=== PATIENT | male | born 1955 | race Caucasian/White ===

== ENCOUNTER → 2016-08-24 | Outpatient (CLI) | payer OTHER ==
[~2016-08-24] MED LIST: ARICEPT 5 MG5 MG PO; ARICEPT10 M1 PO; ASPIRIN (CHILDR81 MG PO; DITROPAN XL5 MG PO; LOPERAMIDE2 MG PO; MILK OF MA400 MG/5 M PO; NEURONTIN300 MG PO; NORCO 5-325 MG1 TAB PO; PRILOSEC20 MG PO; TYLENOL EXTRA500 MG PO
== END | disposition disaster alternative care site (69) ==
LOC: LHSC 14:45
DX: G56.82 Other specified mononeuropathies of left upper limb (principal)